=== PATIENT | female | born 1990 | race Caucasian/White ===

== ENCOUNTER 2021-03-30 01:59 | Outpatient (CLI) | payer MEDICAID, SELFPAY ==
[2021-03-30 11:37] LABS: Source Nasal/Nares
[2021-03-30 20:39] LABS: COVID-19 PCR Negative (Negative)
== END 2021-03-30 02:00 | disposition home or self-care (01) ==
LOC: LBO 02:00
PROVIDERS: PCP Internal Medicine
DX: Z20.822 Contact with and (suspected) exposure to COVID-19 (principal); Z01.818 Encounter for other preprocedural examination
CPT/HCPCS: 87635

== ENCOUNTER 2021-08-10 14:13 | Emergency (ER) | payer MEDICAID, SELFPAY ==
[2021-08-10] VITALS (11 sets, daily range): BP systolic 115–128; BP diastolic 61–86; PULSE 75–113; RESP 18; TEMP 37.1; O2SAT 96–100
--- NOTE | 2021-08-10 14:15 | DI.CT_ITS ---
Exam(s) CT CHEST/ABD/PEL W CT THORACIC LUMBAR SPINE REC EXAM: CT CHEST/ABD/PEL W and CT thoracic and lumbar spine recons CLINICAL HISTORY: fall down 13 stairs, flank and lumbar spine pain TECHNIQUE: Imaging Protocol: Axial computed tomography images with coronal and sagittal reformatted images were created and reviewed CONTRAST MATERIAL: Intravenous: Omnipaque 350 Contrast volume:100 mL Oral: No COMPARISON: No priors for comparison. FINDINGS: CHEST: Tracheobronchial tree: Patent where visualized. Pulmonary parenchyma: No consolidation or dominant measurable mass. No architectural distortion. Mild dependent atelectasis. Visualized thyroid gland: Unremarkable. Mediastinum and Annette: No dominant adenopathy or fluid collection. Pleura: No effusion or pneumothorax. Heart: The heart is not dilated. No coronary artery calcifications are seen. No pericardial effusion. Aorta: Thoracic aorta non-dilated. Lymph nodes: Within normal limits. Soft tissues: Unremarkable. Bones:No rib fracture. Thoracic spine recons: There is a mild depression of the superior endplate of T2. This is of indeter minate age. Please correlate with patient's site of pain. MRI may be considered for further evaluat ion. ABDOMEN: Liver: Normal density. No measurable mass. Portal, Superior Mesenteric, and Splenic Veins: Unremarkable. Gallbladder and Biliary Tract: No radiodense calculus or dilation. Pancreas: Normal density, no abnormal calcifications or inflammatory process. Spleen: Normal. There is a tiny round lucency in the peripheral aspect of the spleen. This may repre sent a small cyst. No perisplenic hematoma is seen. Adrenals: No masses seen. Kidneys: Normal size, contour and axis. No radiodense stones or obstructive uropathy. No masses seen. 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 Abdominal Aorta: Abdominal portion non-dilated. Bowel: No obstruction or bowel wall thickening. No evidence of appendicitis. Peritoneal Cavity: No ascites, collection or mesenteric inflammatory response. No free air. Lymph Nodes: Within normal limits. Bones: Unremarkable. Soft Tissues: Unremarkable. Lumbar spine recons: No acute fracture or subluxation in the lumbar spine. PELVIS: Bladder: Symmetric distention, no gross wall thickening. Reproductive Organs: Unremarkable as visualized. Lymph Nodes: Within normal limits. Bones: Within normal limits. IMPRESSION: 1. No acute abdominal or pelvic organ injury. No acute fracture or subluxation in the lumbar spine. 2. No acute pulmonary process. 3. Mild depression of the superior endplate of T2. This is of indeterminate age. Please correlate w ith the patient's site of pain. MRI may be considered for further evaluation. RADIATION DOSE DELIVERED: Total DLP DATA REPOSITORY: All CT scans at this facility are submitted to the National Radiology Data Registry (NRDR) Dose Index Registry (DIR) with the [employer] ([employer]). RADIATION OPTIMIZATION: All CT scans at this facility use at least one of these dose optimization te chniques: automated exposure control; mA and/or kV adjustment per patient size (includes targeted exa ms where dose is matched to clinical indication); or iterative reconstruction.
--- NOTE | 2021-08-10 14:15 | DI.CT_ITS ---
Exam(s) CT HEAD CERVICAL SPINE WO EXAM: CT HEAD CERVICAL SPINE WO CLINICAL HISTORY: fall down 13 steps, pain. TECHNIQUE: Imaging Protocol: Axial computed tomography images with coronal and sagittal reformatted images were created and reviewed COMPARISON: No exams were available for comparison FINDINGS: CT Head: Ventricles and Extra axial spaces: Normal in size and morphology for the patient's age. Hemorrhage: None. Cerebral parenchyma: Normal. Midline shift: None. Brainstem/Cerebellum: Normal. Calvarium: Normal. Visualized Paranasal sinuses/Mastoids: Mild mucosal thickening in the maxillary sinuses. The remaini ng visualized paranasal sinuses and mastoid air cells are clear. Soft Tissues: Unremarkable. CT Cervical Spine: Bones: No acute fracture or subluxation. There is mild depression of the superior aspect of the T2 ve rtebral body. This is of indeterminate acuity. Please correlate with the patient's site of pain. Soft Tissues: Unremarkable. Lung Apices: Clear. IMPRESSION: 1. No acute intracranial process. 2. No acute fracture or subluxation in the cervical spine. 3. Mild depression of the superior aspect of the T2 vertebral body. This is of indeterminate acuity. Please correlate with the patient's site of pain. MRI may be considered for further evaluation. RADIATION DOSE DELIVERED: 1,562.63mGy.cm Total DLP DATA REPOSITORY: All CT scans at this facility are submitted to the National Radiology Data Registry (NRDR) Dose Index Registry (DIR) with the [employer] (ACR). RADIATION OPTIMIZATION: All CT scans at this facility use at least one of these dose optimization te chniques: automated exposure control; mA and/or kV adjustment per patient size (includes targeted exa ms where dose is matched to clinical indication); or iterative reconstruction.
[2021-08-10 14:41] LABS: Abs Immature Grans 0.03 10^3/uL (0.0-0.06); Absolute Basophil Count 0.05 10^3/uL (0.0-0.2); Absolute Lymphocyte Count 1.56 10^3/uL (1.2-3.4); Absolute Monocyte Count 0.35 10^3/uL (0.1-0.8); Eosinophils % 3.9; HCT 43.1 % (36.0-46.0); HGB 14.3 g/dL (11.2-15.7); Immature Grans % 0.6; Lymphocytes % 30.6; MCH 31.1 pg (27.0-33.0); MCHC 33.2 % (32.0-36.0); MCV 93.7 fL (80-95); MPV 8.8 fL (8.0-11.0); Monocytes % 6.9; Nucleated RBC 0 %; Platelet Count 304 10^3/uL (130-400); RDW 12.4 % (11.7-14.6); WBC 5.09 10^3/uL (4.4-10.8)
[2021-08-10 15:04] LABS: ALT 23 U/L (14-59); AST 20 U/L (15-37); Albumin 3.9 g/dL (3.4-5.0); Alkaline Phosphatase 64 U/L (46-116); BUN 6 mg/dL (7-18); Bilirubin, Total 0.4 mg/dL (0.2-1.0); CREATININE 0.8 mg/dL (0.55-1.02); Calcium 8.9 mg/dL (8.5-10.1); Chloride 105 mmol/L (98-107); Glucose 80 mg/dL (74-106); Potassium 4.1 mmol/L (3.5-5.1); Sodium 141 mmol/L (136-145); Total Protein 7.3 g/dL (6.4-8.2)
[2021-08-10 15:07] LABS: HCG Qual (Serum) Negative
--- NOTE | 2021-08-10 15:51 | W.ED.GENAD ---
Discharge Plan Disposition Patient Disposition: HOME Condition: Stable Discharge Details Clinical Impression: Fall, Cervical pain, Abrasion Primary Care Provider: Kelechi Iqbal ED Provider: Amisha Lucas Home Meds and New Rx's Prescriptions: New cyclobenzaprine 10 mg tablet 10 mg PO TID PRN (Reason: muscle spasm) Qty: 14 RF: 0 Continued hydrocodone-acetaminophen 5-325 mg tablet 1 tab PO Q12H RF: 0 terbinafine HCl 250 mg tablet 250 mg PO DAILY RF: 0 danazol 100 mg capsule 100 mg PO BID RF: 0 Discharge Instructions Instructions: Back Pain (ED), Neck Pain (ED) Additional Instructions: Your imaging is reassuring here today. However, as you continue to have neck pain, I would like to leave your collar in place into your reevaluated for potential ligamentous injury. Please call orthopedic Friday to schedule follow-up appointment, number listed below. In regard to your back pain, I am concerned that this may increase and you may develop more muscle spasms. Please stay well-hydrated. You may use Tylenol and/or ibuprofen as needed for discomfort. You may continue with your pain medication as previously prescribed. Be careful that your pain medication does have Tylenol in it and you should not exceed 4000 mg of Tylenol daily. We will augment this with cyclobenzaprine as needed to help with muscle spasms. This is been sent to your pharmacy. Please not take this at the same time you take your hydrocodone. Please encourage frequent ambulation, gentle stretching. You may find heat and massage of benefit. Lidocaine patches is may also be of benefit. Please follow-up with your primary care next week for reevaluation and discuss any continued pain management as needed. If you develop increased pain, fever/chills, weakness, sensory changes or other new/worsening symptoms please seek care urgently once again. Referrals: Kelechi Iqbal MD [Primary Care Provider] - Discharge Data Discharge Date/Time-TO BE ENTERED AT DEPARTURE: 08/10/21 18:40 Medical Decision Making <BETTY Shell - Last Filed: 08/11/21 18:35> Patient with is resting in the room, she declines any analgesia Her tetanus is reportedly up-to-date negative, CBC within normal limits Patient is pending CT head, cervical spine, chest, abdomen, pelvis I ordered the diagnostic tests given last trauma and patient's pain complaints She declines any analgesia at this time She will be signed out pending ct interpretations to Amisha Lucas PA-C Medical Records Medical records reviewed: Yes I reviewed the patient's medical records. Lab Data Lab results reviewed: Yes I reviewed the patient's lab results. <BETTY Angelo - Last Filed: 08/10/21 22:32> Care transition myself from Lore Schmitt PA-C. Please see her initial note regarding history, presentation and exam. In brief, patient is a pleasant 31-year-old who comes in after falling down flight of stairs. Primary area of pain was on their back. At the time I assumed care, imaging pending. Tetanus has been ordered. Baseline labs were reviewed without abnormality noted. Reevaluated the patient. Report feeling improved after IV fentanyl. FINDINGS: Brain: No acute post-traumatic brain injury. Symmetric caliber of the cortical sulci. Normal hutton-white matter differentiation. Cerebral ventricles: Normal configuration of the ventricles. Paranasal sinuses: Low-grade maxillary and ethmoid sinus mucoperiosteal disease. Mastoid air cells: No mastoid effusion. Bones/joints: No acute calvarial injury. Soft tissues: No significant scalp hematoma. IMPRESSION: No acute post-traumatic brain injury. FINDINGS: Bones/joints: No acute bony injury or malalignment in the cervical spine. Mild compression deformity of the T2 vertebral body, believed to be chronic. Discs/Spinal canal/Neural foramina: No acute findings. Lungs: Unremarkable apices as visualized. Soft tissues: Unremarkable. IMPRESSION: 1. No acute bony injury or malalignment in the cervical spine. 2. Mild compression deformity of the T2 vertebral body, believed to be chronic. Discussed these findings with the patient and their mother. Patient does not have midline tenderness on exam, does have pain off to the left. However, they report pain along the midline with rotation of the neck. Reapplied the collar, will transition to [place]. FINDINGS: Vertebrae: Schmorl's nodes , with vertebral endplate depression and irregularity. Mild T2 compression deformity, believed to be chronic. No acute bony injury or malalignment in the thoracic spine. Discs/Spinal canal/Neural foramina: Mild degenerative change and marginal osteophytes. Soft tissues: Unremarkable appearance of the paraspinous soft tissues. IMPRESSION: No acute bony injury or malalignment in the thoracic spine. FINDINGS: Vertebrae: Schmorl's nodes with vertebral endplate depression and irregularity. No acute bony injury or malalignment in the lumbar spine. Discs/Spinal canal/Neural foramina: No acute findings. Soft tissues: Unremarkable appearance of the paraspinous soft tissues. IMPRESSION: No acute bony injury or malalignment in the lumbar spine FINDINGS: Lungs: Unremarkable. No consolidation. No masses. Pleural spaces: Unremarkable. No pneumothorax. No pleural effusion. Heart: Unremarkable. No cardiomegaly. No pericardial effusion. Aorta: Unremarkable. No aortic aneurysm. Lymph nodes: Unremarkable. No enlarged lymph nodes. Bones/joints: Probable mild anterior superior endplate compression fracture at T2, of uncertain age. Soft tissues: Unremarkable. IMPRESSION: Probable mild anterior superior endplate compression fracture at T2, of uncertain age. No other acute abnormality. FINDINGS: Liver: Normal. No mass. Gallbladder and bile ducts: Normal. No calcified stones. No ductal dilation. Pancreas: Normal. No ductal dilation. Spleen: Normal. No splenomegaly. Adrenal glands: Normal. No mass. Kidneys and ureters: Normal. No hydronephrosis. Stomach and bowel: Unremarkable. No obstruction. No mucosal thickening. Appendix: No evidence of appendicitis. Intraperitoneal space: Unremarkable. No free air. No significant fluid collection. Vasculature: Unremarkable. No abdominal aortic aneurysm. Lymph nodes: Unremarkable. No enlarged lymph nodes. Urinary bladder: Unremarkable as visualized. Reproductive: Unremarkable as visualized. Bones/joints: Unremarkable. No acute fracture. Soft tissues: Unremarkable. IMPRESSION: No acute findings. Discussed the findings with the patient and her mother. We did discuss that radiologist notes chronic appearing T2 fracture. They do not recall previous injury but reports that they have had chronic back pain and are questioning if this may be the source. Patient discussed options for pain management. Patient is chronically on narcotics associated with severe endometriosis as well as fibromyalgia. With the description of pain as well as location, I am concerned that pain will primarily be associated with muscle spasms. Will prescribe cyclobenzaprine. They report they have been on baclofen historically and that this is typically worked very well but that the baclofen began causing nausea I would like to try a different medication for muscle spasms. I advised not to take this at the same time you are taking the narcotics. Encourage hydration. Encourage gentle stretching. Encouraged heat or ice. Encourage massage. Advised on topical options. Advised may continue with Tylenol and ibuprofen as needed for discomfort. Patient will need to be reevaluated by orthopedics for cervical collar clearance, I asked that they call Friday morning to schedule follow-up appointment. Return precautions were discussed. All of their questions and concerns were addressed and they are in agreement with plan. They will contact primary care regarding continued pain medication management. Primary care is near [place]. HPI <BETTY Shell - Last Filed: 08/11/21 18:35> General Mode of arrival: ambulatory. Date/Time Provider Initiated Documentation: 08/10/21 14:15. Limitations to Documentation: no limitations. Information obtained by: patient. HPI Narrative: This 31-year-old individual presents with a report of fall down approximately 13 stairs. Patient states the rug was not stable down and that she slipped, falling and hitting her head and back on the stairs while she in between the door. She denies no loss of consciousness. She has pain down the entirety of her back. She states her tetanus is up-to-date. She denies any dental diagnosis. She denies any vomiting. She denies any strength or sensation change. She has pain in the middle of her back when she takes a deep breath only. She took a [place] prior to arrival and states her pain is improved. She denies any history of anticoagulation. Related Data Home Medications Medication Instructions Recorded Confirmed cyclobenzaprine 10 mg PO TID PRN #14 tab 08/10/21 danazol 100 mg PO BID 08/10/21 08/10/21 hydrocodone-acetaminophen 1 tab PO Q12H 08/10/21 08/10/21 terbinafine HCl 250 mg PO DAILY 08/10/21 08/10/21 Previous Rx's Medication Instructions Recorded cyclobenzaprine 10 mg PO TID PRN #14 tab 08/10/21 Allergies Allergy/AdvReac Type Severity Reaction Status Date / Time bupropion HCl AdvReac Severe short Unverified 08/10/21 14:20 [From Wellbutrin] memory impairment. ethinyl estradiol AdvReac Severe nausea and Unverified 08/10/21 14:20 [From Ortho-Cyclen (21)] vomiting. norgestimate AdvReac Severe nausea and Unverified 08/10/21 14:20 [From Ortho-Cyclen (21)] vomiting. venlafaxine HCl AdvReac Severe decreased Unverified 08/10/21 14:20 [From Effexor] focus lactose AdvReac Intermediate intolerance Unverified 08/10/21 14:20 melatonin AdvReac Intermediate Agitation Unverified 08/10/21 14:20 General Stated Complaint: Trauma DESMOND: 3 Review of Systems <BETTY Shell Last Filed: 08/11/21 18:35> All systems reviewed & are unremarkable except as noted in HPI and below PFSH <BETTY Shell Last Filed: 08/11/21 18:35> Social History Smoking/Tobacco Use Status: Never Smoking risk assessment performed?: Yes Alcohol Intake: current Alcohol Intake frequency: holidays/special occasions only Alcohol type: beer Drug use: Never Substance use type: does not use Do you feel safe at home: Yes Do you feel safe in your relationship?: Yes Exam <BETTY Shell Last Filed: 08/11/21 18:35> Const General: cooperative and no acute distress HENMT Other: No hemotympanum, no visible sign of trauma Eyes Pupils: PERRL Neck Other: c6-7 tenderness, no visible evidence of trauma Chest Chest: normal inspection of the chest Resp Effort & Inspection: normal respiratory effort Auscultation: clear to auscultation bilaterally Other: No visible evidence of trauma Cardio Rate: regular rate Rhythm: regular rhythm GI Other: No abdominal tenderness, CVA tenderness on right, Back/Spine/Pelvis Other: Paraspinal tenderness lumbar spine Small abrasion noted 1 inch laterally to spine, tenderness, abrasion Neuro General: patient alert and patient oriented x3 Cognition: normal cognition Speech: speech normal Other: Strength and sensation intact distally Course <BETTY Shell Last Filed: 08/11/21 18:35> Vital Signs Vital signs: Vital Signs Temperature 37.1 C 08/10/21 14:15 Pulse 75 08/10/21 14:15 Respiratory Rate 18 08/10/21 14:15 Blood Pressure 115/61 08/10/21 14:15 Pulse Oximetry 100 08/10/21 14:15 Temperature 37.1 C 08/10/21 14:15 Temperature Source Temporal Artery Scan 08/10/21 14:15 Pulse 75 08/10/21 14:15 Respiratory Rate 18 08/10/21 14:15 Respiratory Effort Non-Labored 08/10/21 14:18 Blood Pressure 115/61 08/10/21 14:15 Blood Pressure Position Supine 08/10/21 14:15 Pulse Oximetry 99 08/10/21 14:50 Oxygen Delivery Method Room Air 08/10/21 14:15 Oxygen Flow Rate 0 08/10/21 14:15 Pain Level 6 08/10/21 14:15 Lab/Test Results Lab/Test Results: Laboratory Tests Range/Units 08/10/21 08/10/21 08/10/21 14:30 14:30 14:30 WBC (4.4-10.8) 10^3/uL 5.09 RBC (3.93-5.22) 10^6/uL 4.60 Hgb (11.2-15.7) g/dL 14.3 Hct (36.0-46.0) % 43.1 MCV (80-95) fL 93.7 MCH (27.0-33.0) pg 31.1 MCHC (32.0-36.0) % 33.2 RDW (11.7-14.6) % 12.4 Plt Count (130-400) 10^3/uL 304 MPV (8.0-11.0) fL 8.8 Immature Gran % 0.6 Neutrophils % 57.0 Lymphocytes % 30.6 Monocytes % 6.9 Eosinophils % 3.9 Basophils % 1.0 Nucleated RBC % % 0 Absolute Neutrophils (1.2-6.7) 10^3/uL 2.90 Absolute Lymphocytes (1.2-3.4) 10^3/uL 1.56 Absolute Monocytes (0.1-0.8) 10^3/uL 0.35 Absolute Eosinophils (0.0-0.7) 10^3/uL 0.20 Absolute Basophils (0.0-0.2) 10^3/uL 0.05 Sodium (136-145) mmol/L 141 Potassium (3.5-5.1) mmol/L 4.1 Chloride (98-107) mmol/L 105 Carbon Dioxide (21.0-32.0) mmol/L 29.0 Anion Gap (3-11) mmol/L 7.0 BUN (7-18) mg/dL 6 L Creatinine (0.55-1.02) mg/dL 0.8 Estimated GFR/1.73 m2 (mL/min/1.73m2) >= 60.00 Glucose (74-106) mg/dL 80 Calcium (8.5-10.1) mg/dL 8.9 Total Bilirubin (0.2-1.0) mg/dL 0.4 AST (15-37) U/L 20 ALT (14-59) U/L 23 Alkaline Phosphatase (46-116) U/L 64 Total Protein (6.4-8.2) g/dL 7.3 Albumin (3.4-5.0) g/dL 3.9 Serum HCG, Qual Negative Patient ABO/Rh Antibody Screen Range/Units 08/10/21 14:30 WBC (4.4-10.8) 10^3/uL RBC (3.93-5.22) 10^6/uL Hgb (11.2-15.7) g/dL Hct (36.0-46.0) % MCV (80-95) fL MCH (27.0-33.0) pg MCHC (32.0-36.0) % RDW (11.7-14.6) % Plt Count (130-400) 10^3/uL MPV (8.0-11.0) fL Immature Gran % Neutrophils % Lymphocytes % Monocytes % Eosinophils % Basophils % Nucleated RBC % % Absolute Neutrophils (1.2-6.7) 10^3/uL Absolute Lymphocytes (1.2-3.4) 10^3/uL Absolute Monocytes (0.1-0.8) 10^3/uL Absolute Eosinophils (0.0-0.7) 10^3/uL Absolute Basophils (0.0-0.2) 10^3/uL Sodium (136-145) mmol/L Potassium (3.5-5.1) mmol/L Chloride (98-107) mmol/L Carbon Dioxide (21.0-32.0) mmol/L Anion Gap (3-11) mmol/L BUN (7-18) mg/dL Creatinine (0.55-1.02) mg/dL Estimated GFR/1.73 m2 (mL/min/1.73m2) Glucose (74-106) mg/dL Calcium (8.5-10.1) mg/dL Total Bilirubin (0.2-1.0) mg/dL AST (15-37) U/L ALT (14-59) U/L Alkaline Phosphatase (46-116) U/L Total Protein (6.4-8.2) g/dL Albumin (3.4-5.0) g/dL Serum HCG, Qual Patient ABO/Rh O Positive Antibody Screen NEGATIVE Sign Out <BETTY Shell - Last Filed: 08/11/21 18:35> Sign Out Data: Sign Out Comment: pending ct interpretation Last updated by Lore Schmitt PA at 08/10/21 16:07 PAWSS <BETTY Shell - Last Filed: 08/11/21 18:35> Have you Been Recently Intoxicated or Drunk Within the Last 30 days?: No Have you Ever Experienced Previous Episodes of Alcohol Withdrawal?: No Have you ever Experienced Withdrawal Seizures?: No Have you ever Experienced Delirium Tremens(DT)s?: No Have you ever undergone Alcohol Rehabilitation Treatment (i.e, inpt ot outpatient treatment programs)?: No Have you ever Experienced Blackouts?: No Have you ever Combined Alcohol with other Downers within the last 90 days?: No Have you ever Combined Alcohol with any other Substance of Abuse during the last 90 days?: No Positive Blood Alcohol level on Presentation? [PCS.BAL]: No Evidence of Increased Autonomic Activity (i.e. HR>120, tremor, sweating, agitation, nausea)?: No Result: 0
[2021-08-10] MEDS: Normal Saline - Diluent 50 ML VIAL IV (15:52)
[2021-08-10] MEDS: Omnipaque 350 MG/ML 100 ML BTL IJ (15:54)
[2021-08-10] MEDS: Orphenadrine 60 MG/2 ML VIAL IVP (16:42)
[2021-08-10] MEDS: fentaNYL 100 MCG/2 ML VIAL 50 MCG IVP (16:42)
--- NOTE | 2021-08-10 16:51 | DI.VRAD_ITS ---
PROCEDURE INFORMATION: Exam: CT Head Without Contrast Exam date and time: 08/10/2021 3:43 PM Age: 31 years old Clinical indication: Injury or trauma; Blunt trauma (contusions or hematomas); Injury details: fall TECHNIQUE: Imaging protocol: Computed tomography of the head without contrast. COMPARISON: No relevant prior studies available. FINDINGS: Brain: No acute post-traumatic brain injury. Symmetric caliber of the cortical sulci. Normal hutton-white matter differentiation. Cerebral ventricles: Normal configuration of the ventricles. Paranasal sinuses: Low-grade maxillary and ethmoid sinus mucoperiosteal disease. Mastoid air cells: No mastoid effusion. Bones/joints: No acute calvarial injury. Soft tissues: No significant scalp hematoma. IMPRESSION: No acute post-traumatic brain injury. PROCEDURE INFORMATION: Exam: CT Cervical Spine Without Contrast Exam date and time: 08/10/2021 3:43 PM Age: 31 years old Clinical indication: Injury or trauma; Blunt trauma (contusions or hematomas); Injury details: fall TECHNIQUE: Imaging protocol: Computed tomography images of the cervical spine without contrast. Radiation optimization: All CT scans at this facility use at least one of these dose optimization techniques: automated exposure control; mA and/or kV adjustment per patient size (includes targeted exams where dose is matched to clinical indication); or iterative reconstruction. COMPARISON: No relevant prior studies available. FINDINGS: Bones/joints: No acute bony injury or malalignment in the cervical spine. Mild compression deformity of the T2 vertebral body, believed to be chronic. Discs/Spinal canal/Neural foramina: No acute findings. Lungs: Unremarkable apices as visualized. Soft tissues: Unremarkable. IMPRESSION: 1. No acute bony injury or malalignment in the cervical spine. 2. Mild compression deformity of the T2 vertebral body, believed to be chronic. Dictated and Authenticated by: Sandoval Oquendo MD. Ordering:GAVI Torrez MD
--- NOTE | 2021-08-10 16:56 | DI.VRAD_ITS ---
PROCEDURE INFORMATION: Exam: CT Thoracic Spine Without Contrast Exam date and time: 08/10/2021 3:51 PM Age: 31 years old Clinical indication: Other: Fall down flight of stairs, thoracic pain TECHNIQUE: Imaging protocol: Computed tomography images of the thoracic spine without contrast. Radiation optimization: All CT scans at this facility use at least one of these dose optimization techniques: automated exposure control; mA and/or kV adjustment per patient size (includes targeted exams where dose is matched to clinical indication); or iterative reconstruction. COMPARISON: None FINDINGS: Vertebrae: Schmorl's nodes , with vertebral endplate depression and irregularity. Mild T2 compression deformity, believed to be chronic. No acute bony injury or malalignment in the thoracic spine. Discs/Spinal canal/Neural foramina: Mild degenerative change and marginal osteophytes. Soft tissues: Unremarkable appearance of the paraspinous soft tissues. IMPRESSION: No acute bony injury or malalignment in the thoracic spine. PROCEDURE INFORMATION: Exam: CT Lumbar Spine Without Contrast Exam date and time: 08/10/2021 3:51 PM Age: 31 years old Clinical indication: Other: Fall down flight of stairs, thoracic pain TECHNIQUE: Imaging protocol: Computed tomography images of the lumbar spine without contrast. Radiation optimization: All CT scans at this facility use at least one of these dose optimization techniques: automated exposure control; mA and/or kV adjustment per patient size (includes targeted exams where dose is matched to clinical indication); or iterative reconstruction. COMPARISON: None FINDINGS: Vertebrae: Schmorl's nodes with vertebral endplate depression and irregularity. No acute bony injury or malalignment in the lumbar spine. Discs/Spinal canal/Neural foramina: No acute findings. Soft tissues: Unremarkable appearance of the paraspinous soft tissues. IMPRESSION: No acute bony injury or malalignment in the lumbar spine. Dictated and Authenticated by: Sandoval Oquendo MD. Ordering:GAIV Torrez MD
--- NOTE | 2021-08-10 17:14 | DI.VRAD_ITS ---
PROCEDURE INFORMATION: Exam: CT Chest With Contrast; Diagnostic Exam date and time: 08/10/2021 3:58 PM Age: 31 years old Clinical indication: Injury or trauma; Generalized; Blunt trauma (contusions or hematomas); Injury details: Fall 13 stairs. Flank/lumbar spine pain TECHNIQUE: Imaging protocol: Diagnostic computed tomography of the chest with contrast. Radiation optimization: All CT scans at this facility use at least one of these dose optimization techniques: automated exposure control; mA and/or kV adjustment per patient size (includes targeted exams where dose is matched to clinical indication); or iterative reconstruction. Contrast material: OMNI 350; Contrast volume: 100 ml; Contrast route: INTRAVENOUS (IV); COMPARISON: CT HEAD CERVICAL SPINE WO 08/10/2021 3:48 PM FINDINGS: Lungs: Unremarkable. No consolidation. No masses. Pleural spaces: Unremarkable. No pneumothorax. No pleural effusion. Heart: Unremarkable. No cardiomegaly. No pericardial effusion. Aorta: Unremarkable. No aortic aneurysm. Lymph nodes: Unremarkable. No enlarged lymph nodes. Bones/joints: Probable mild anterior superior endplate compression fracture at T2, of uncertain age. Soft tissues: Unremarkable. IMPRESSION: Probable mild anterior superior endplate compression fracture at T2, of uncertain age. No other acute abnormality. PROCEDURE INFORMATION: Exam: CT Abdomen And Pelvis With Contrast Exam date and time: 08/10/2021 3:58 PM Age: 31 years old Clinical indication: Injury or trauma; Generalized; Blunt trauma (contusions or hematomas); Injury details: Fall 13 stairs. Flank/lumbar spine pain TECHNIQUE: Imaging protocol: Computed tomography of the abdomen and pelvis with contrast. Contrast material: OMNI 350; Contrast volume: 100 ml; Contrast route: INTRAVENOUS (IV); COMPARISON: CT HEAD CERVICAL SPINE WO 08/10/2021 3:48 PM FINDINGS: Liver: Normal. No mass. Gallbladder and bile ducts: Normal. No calcified stones. No ductal dilation. Pancreas: Normal. No ductal dilation. Spleen: Normal. No splenomegaly. Adrenal glands: Normal. No mass. Kidneys and ureters: Normal. No hydronephrosis. Stomach and bowel: Unremarkable. No obstruction. No mucosal thickening. Appendix: No evidence of appendicitis. Intraperitoneal space: Unremarkable. No free air. No significant fluid collection. Vasculature: Unremarkable. No abdominal aortic aneurysm. Lymph nodes: Unremarkable. No enlarged lymph nodes. Urinary bladder: Unremarkable as visualized. Reproductive: Unremarkable as visualized. Bones/joints: Unremarkable. No acute fracture. Soft tissues: Unremarkable. IMPRESSION: No acute findings. Dictated and Authenticated by: Nubia Marti MD. Ordering:GAVI Torrez MD
[2021-08-10] MEDS: Lidocaine 5% Patch 1 PATCH TP (18:25)
== END 2021-08-10 18:40 | disposition home or self-care (01) ==
PROVIDERS: Physician Assistant; Emergency Provider Physician Assistant; PCP Internal Medicine
DX: M54.2 Cervicalgia (principal); M54.9 Dorsalgia, unspecified; S30.810A Abrasion of lower back and pelvis, initial encounter; W10.8XXA Fall (on) (from) other stairs and steps, initial encounter
CPT/HCPCS: 36415; 74177; 80053; 86850; 86900; 86901; 90471; 96374; 96375; 99285; J2360; 70450; 71260; 72125; 84703; 85025; 99284; J3010; J3490

== ENCOUNTER 2023-03-04 00:55 | Emergency (ER) | payer MEDICAID, SELFPAY ==
[2023-03-04] VITALS (13 sets, daily range): BP systolic 97–121; BP diastolic 30–48; PULSE 47–70; RESP 12–20; TEMP 37.2; O2SAT 99–100
--- NOTE | 2023-03-04 01:00 | RT.EKG_ITS ---
APPROVED REPORT Exam: Resting ECG Reason for Exam: syncope Patient Location: E HR:50 bpm ECG Measurements Heart Rate 50 AXIS OK 170 P 51 QRSd 74 QRS 83 QT 415 T 64 QTc 379 Conclusion Sinus bradycardia...rate< 60 Nonspecific T abnrm, anterolateral leads...T <-0.10mV, I aVL V2-V6 PHysician: no stemi, inverted t waves in V1 and V2
--- NOTE | 2023-03-04 01:00 | DI.CT_ITS ---
Exam(s) CT CHEST PE CTA EXAM: CT CHEST PE CTA CLINICAL HISTORY: bilat masectomy today, 5x syncope, eval for PE. TECHNIQUE: Imaging Protocol: Axial CT angiography was performed with multi-slice acquisition and mu lti-planar and/or 3D reconstructions. CONTRAST MATERIAL: Intravenous: Omnipaque 350 contrast volume:100 mL COMPARISON: CT CT CHEST/ABD/PEL W from 08/10/[address] THORACIC LUMBAR SPINE REC from 08/10/2021 FINDINGS: Tracheobronchial tree: Patent where visualized. Pulmonary parenchyma: No consolidation or dominant measurable mass. No architectural distortion. Ther e is dependent atelectasis in the lung bases. Pulmonary Arteries: No evidence of filling defect to suggest pulmonary emboli. Mediastinum and Annette: No dominant adenopathy or fluid collection. The esophagus is unremarkable. Visualized thyroid gland: Unremarkable. Pleura: No effusion or pneumothorax. Heart: The heart is not dilated. No coronary artery calcifications are seen. No pericardial effusion. Aorta: Thoracic aorta non-dilated. No evidence of dissection. Upper abdomen: Unremarkable. Soft tissues: The patient is status post bilateral mastectomy today with postsurgical changes seen in the soft tissues of the anterior chest. Tubing is seen in the soft tissues of the anterior chest wa ll bilaterally. Subcutaneous air is seen in the chest wall anteriorly. Bones: Within normal limits for the patient's age. IMPRESSION: 1. No evidence of pulmonary embolism, thoracic aortic dissection or aneurysm. 2. Status post bilateral mastectomy with expected postsurgical changes in the anterior chest wall wit h bilateral soft tissue drains. RADIATION DOSE DELIVERED: 382.9mGy.cm Total DLP DATA REPOSITORY: All CT scans at this facility are submitted to the National Radiology Data Registry (NRDR) Dose Index Registry (DIR) with the [employer] (ACR). RADIATION OPTIMIZATION: All CT scans at this facility use at least one of these dose optimization te chniques: automated exposure control; mA and/or kV adjustment per patient size (includes targeted exa ms where dose is matched to clinical indication); or iterative reconstruction.
--- NOTE | 2023-03-04 01:14 | W.ED.GENAD ---
Discharge Plan Disposition Patient Disposition: Home Discharge Details Chief Complaint: GenMedical Clinical Impression: Syncope, Dehydration Primary Care Provider: Kelechi Iqbal ED Provider: Keon Balbuena Home Meds and New Rx's Prescriptions: No Action danazol 100 mg Capsule 100 mg PO BID hydrocodone-acetaminophen 5-325 mg tablet 1 tab PO Q12H Patient Comments: TAKE ONE TABLET BY MOUTH EVERY 12 HOURS NEEDED FOR PAIN danazol 100 mg capsule 100 mg PO BID Patient Comments: TAKE ONE CAPSULE BY MOUTH TWICE A DAY Discharge Instructions Instructions: Dehydration (ED), Syncope (ED) Additional Instructions: At this time your work-up suggest that there is a component of dehydration, as well as a slight drop in your hemoglobin which combined with a vasovagal effect from the pain from your surgical site is likely a component for your lightheadedness and syncope. CAT scan shows no evidence of blood clots. Your heart markers show no signs of heart attack or other significant dysrhythmia. Please continue to drink plenty of fluids, stay well-hydrated, make slow transitions from lying, seated, and standing positions. Follow-up closely with your manager surgical at [facility]. If you notice any worsening of your symptoms, or any new symptoms such as vomiting, diarrhea, fever, chills, shortness of breath, chest pain, numbness, weakness, or fainting , please return immediately to the emergency department for reevaluation. Please follow up with your primary care provider as soon as possible for reassessment and reevaluation. As always, it was a pleasure participating in your medical care today. Referrals: Kelechi Iqbal MD [Primary Care Provider] - Medical Decision Making This is a 32-year-old patient with a past medical history of endometriosis, potential polycystic ovarian syndrome, recent double mastectomy at [facility] performed less than 12 hours ago, who presents today for evaluation of syncope. Patient states that after the procedure they had some pain and felt generally lightheaded. By the time they returned home they had 3 episodes of syncope whenever they were standing, or having the drain drained. Patient contacted EMS at that time, was evaluated, felt better after little fluid, and decided to hold off on going to the ER. However later this evening the patient continued to have lightheadedness, and near syncopal episodes at home, and was then reassessed by EMS and brought into the ER for evaluation. Blood pressures were noted to be in the 80s systolic by EMS on their arrival. Oxygen saturation normal, blood sugar normal. Patient denies shortness of breath or difficulty breathing. Patient does have a family history of blood clots in her grandparent. Patient denies any previous history of cardiac disease. Patient has mild complaint of pain at the postoperative site, but no other complaint. No other modifying factors. Drains are in place. Physical exam demonstrates appropriate postoperative surgical changes, incision sites are otherwise clean dry and intact. Small amount of drainage present at each drain site, 10 mL from each drain is present. Mucous membranes are dry, lips are slightly pale. Differential at this time includes postoperative appropriate blood loss, with secondary dehydration leading to vasovagal syncope/near syncope. However differential also does include PE, cardiac dysrhythmia, or other abnormality. EKG shows no evidence of STEMI. Intervals are stable. Inverted T waves in V1 and V2, but EKG otherwise stable. We will rehydrate, evaluate for these concerning etiologies, monitor closely and reassess. 3:01 AM Laboratory work-up shows stable electrolytes. Hemoglobin is taken a slight drop at 10.9. After 2 L of normal saline the patient has urinated, and her blood pressure is notably improved from the low 80s measured by EMS, now the mid 110s systolic. Patient feels better. CT/CTA of the chest demonstrates no evidence of pulmonary emboli. EKG is stable with no evidence of significant dysrhythmia. As the patient's symptoms were associated with standing, transitioning and moving, as well as when she was having her drain changed and emptied, I suspect that there was a notable vasovagal component associated with her syncope. At this time with no evidence of dysrhythmia, electrolyte abnormality, pulmonary embolism, dissection, or other significant abnormality I do feel that the patient is stable and appropriate for discharge based on current clinical assessment. FINDINGS: Tubes, catheters and devices: Status post bilateral mastectomy with expected postsurgical change of the anterior thoracic wall with bilateral soft tissue drains. Pulmonary arteries: Normal. No pulmonary emboli. Aorta: Unremarkable. No aortic aneurysm. No aortic dissection. Lungs: Unremarkable. No consolidation. No masses. Pleural spaces: Unremarkable. No pneumothorax. No pleural effusion. Heart: Unremarkable. No cardiomegaly. No pericardial effusion. Lymph nodes: Unremarkable. No enlarged lymph nodes. Bones/joints: Unremarkable. No acute fracture. Soft tissues: Unremarkable. IMPRESSION: Status post bilateral mastectomy with expected postsurgical change of the anterior thoracic wall with bilateral soft tissue drains. Thank you for allowing us to participate in the care of your patient. Dictated and Authenticated by: Sukhjinder Finley MD 03/04/2023 2:40 AM Eastern Time ([place] & [place]) HPI General Date/Time Provider Initiated Documentation: 03/04/23 01:10. HPI Narrative: This is a 32-year-old patient with a past medical history of endometriosis, potential polycystic ovarian syndrome, recent double mastectomy at [facility] performed less than 12 hours ago, who presents today for evaluation of syncope. Patient states that after the procedure they had some pain and felt generally lightheaded. By the time they returned home they had 3 episodes of syncope whenever they were standing, or having the drain drained. Patient contacted EMS at that time, was evaluated, felt better after little fluid, and decided to hold off on going to the ER. However later this evening the patient continued to have lightheadedness, and near syncopal episodes at home, and was then reassessed by EMS and brought into the ER for evaluation. Blood pressures were noted to be in the 80s systolic by EMS on their arrival. Oxygen saturation normal, blood sugar normal. Patient denies shortness of breath or difficulty breathing. Patient does have a family history of blood clots in her grandparent. Patient denies any previous history of cardiac disease. Patient has mild complaint of pain at the postoperative site, but no other complaint. No other modifying factors. Drains are in place. Related Data Home Medications Medication Instructions Recorded Confirmed danazol 100 mg capsule 100 mg PO BID 08/10/21 danazol 100 mg capsule 100 mg PO BID 08/10/21 08/27/21 hydrocodone 5 mg-acetaminophen 325 1 tab PO Q12H 08/10/21 08/27/21 mg tablet Allergies Allergy/AdvReac Type Severity Reaction Status Date / Time bupropion HCl AdvReac Severe short Unverified 04/05/22 11:00 [From Wellbutrin] memory impairment. ethinyl estradiol AdvReac Severe nausea and Unverified 04/05/22 11:00 [From Ortho-Cyclen (21)] vomiting. norgestimate AdvReac Severe nausea and Unverified 04/05/22 11:00 [From Ortho-Cyclen (21)] vomiting. venlafaxine HCl AdvReac Severe decreased Unverified 04/05/22 11:00 [From Effexor] focus lactose AdvReac Intermediate intolerance Unverified 04/05/22 11:00 melatonin AdvReac Intermediate Agitation Unverified 04/05/22 11:00 General Stated Complaint: GenMedical DESMOND: 3 Review of Systems All systems reviewed & are unremarkable except as noted in HPI and below PFSH All Active Problems (Updated 03/04/23 @ 03:01 by Keon Balbuena DO) Syncope (Chronic) Dehydration (Acute) Fall (Acute) Cervical pain (Acute) Abrasion (Acute) Social History Smoking/Tobacco Use Status: Never Smoking risk assessment performed?: Yes Alcohol Intake: current Alcohol Intake frequency: holidays/special occasions only Alcohol type: beer Drug use: Never Substance use type: does not use and marijuana Do you feel safe at home: Yes Do you feel safe in your relationship?: Yes Additional Social history: Lives above parents in own apartment. Exam Narrative Exam Narrative: 1.Const: Well-nourished, Well-developed, appearing stated age 2.Eyes: PERRL, no conjunctival injection, and symmetrical lids. 3.ENT: Atraumatic external nose and ears. Dry MM. Neck: Symmetric, trachea midline, No thyromegaly. 4.CVS: +S1/S2, No murmurs or gallops. Peripheral pulses 2+ and equal in all extremities. Brisk capillary refill in all extremities. 5.RESP: Unlabored respiratory effort. Clear to auscultation bilaterally. No wheezes rales or rhonchi 6.GI: Soft, Nontender/Nondistended, No hepatosplenomegaly. No guarding or rebound. 7.MSK chest wall demonstrates postoperative bilateral mastectomy. Incision sites are clean dry and intact. Drains demonstrate about 10 mL present in each drain basin. No purulence. Fluid is serosanguineous. 8.Skin: Warm, Dry. No rashes or lesions. 9.Neuro: storeroom attendant II-XII grossly intact. Sensation grossly intact, no focal neurologic deficits. 10.Psych: (AAO) x3. Appropriate mood and affect Course Vital Signs Vital signs: Vital Signs Temperature 37.2 C 03/04/23 00:55 Pulse 64 03/04/23 00:55 Respiratory Rate 18 03/04/23 00:55 Blood Pressure 116/48 L 03/04/23 00:55 Pulse Oximetry 100 03/04/23 00:55 Temperature 37.2 C 03/04/23 00:55 Temperature Source Temporal Artery Scan 03/04/23 00:55 Pulse 64 03/04/23 00:55 Respiratory Rate 18 03/04/23 00:55 Respiratory Effort Normal, Non-Labored 03/04/23 01:08 Blood Pressure 116/48 L 03/04/23 00:55 Blood Pressure Position Sitting 03/04/23 00:55 Pulse Oximetry 100 03/04/23 00:55 Oxygen Delivery Method Room Air 03/04/23 00:55 Oxygen Flow Rate 0 03/04/23 00:55 Pain Level 4 03/04/23 00:55
[2023-03-04] MEDS: Normal Saline Flush 10 ML SYR IVP (01:22)
--- NOTE | 2023-03-04 01:22 | NUR.NOTE ---
Pt has bilateral RADHA drains present. 10mL emptied from L side and 10mL emptied from R side.
[2023-03-04 01:23] LABS: Abs Immature Grans 0.03 10^3/uL (0.0-0.06); Absolute Basophil Count 0.01 10^3/uL (0.0-0.2); Absolute Lymphocyte Count 0.49 10^3/uL (1.2-3.4); Absolute Monocyte Count 0.26 10^3/uL (0.1-0.8); Absolute Neutrophil Count 8.87 10^3/uL (1.2-6.7); Basophils % 0.1; HCT 32.7 % (36.0-46.0); HGB 10.9 g/dL (11.2-15.7); Immature Grans % 0.3; Lymphocytes % 5.1; MCH 31.7 pg (27.0-33.0); MCHC 33.3 % (32.0-36.0); MCV 95 fL (80-95); MPV 9.3 fL (8.0-11.0); Monocytes % 2.7; Neutrophils % 91.8; Platelet Count 206 10^3/uL (130-400); RBC 3.44 10^6/uL (3.93-5.22); RDW 11.5 % (11.7-14.6); RDW-SD 39.7 fL; WBC 9.66 10^3/uL (4.4-10.8)
[2023-03-04] MEDS: Normal Saline - Diluent 50 ML VIAL IJ (01:23)
[2023-03-04] MEDS: Omnipaque 350 MG/ML 100 ML BTL IJ (01:23)
[2023-03-04 01:48] LABS: ALT 13 U/L (14-59); AST 9 U/L (15-37); Albumin 3.3 g/dL (3.4-5.0); Alkaline Phosphatase 42 U/L (46-116); Anion Gap 5.9 mmol/L (3-11); BUN 9 mg/dL (7-18); Bilirubin, Total 0.3 mg/dL (0.2-1.0); CO2 24.1 mmol/L (21.0-32.0); CREATININE 0.9 mg/dL (0.55-1.02); Calcium 8.3 mg/dL (8.5-10.1); Chloride 105 mmol/L (98-107); Estimated GFR 87.11 (mL/min/1.73m2); Glucose 178 mg/dL (74-106); Potassium 4.6 mmol/L (3.5-5.1); Sodium 135 mmol/L (136-145); TSH (W/Ref FT4) 0.41 uIU/mL (0.36-3.74); Total Protein 6.3 g/dL (6.4-8.2)
--- NOTE | 2023-03-04 02:41 | DI.VRAD_ITS ---
PROCEDURE INFORMATION: Exam: CTA Chest With Contrast Exam date and time: 03/04/2023 1:25 AM Age: 32 years old Clinical indication: Prior surgery; Surgery date: Post-operative (0-2 days); Surgery type: Bilat mastectomy today; Patient HX: 5x syncope, eval for pe TECHNIQUE: Imaging protocol: Computed tomographic angiography of the chest with contrast. 3D rendering (Not supervised by radiologist): MIP and/or 3D reconstructed images were created by the technologist. Radiation optimization: All CT scans at this facility use at least one of these dose optimization techniques: automated exposure control; mA and/or kV adjustment per patient size (includes targeted exams where dose is matched to clinical indication); or iterative reconstruction. Contrast material: OMNIPAQUE 350; Contrast volume: 100 ml; Contrast route: INTRAVENOUS (IV); COMPARISON: CT CHEST/ABD/PEL W 08/10/2021 3:56 PM FINDINGS: Tubes, catheters and devices: Status post bilateral mastectomy with expected postsurgical change of the anterior thoracic wall with bilateral soft tissue drains. Pulmonary arteries: Normal. No pulmonary emboli. Aorta: Unremarkable. No aortic aneurysm. No aortic dissection. Lungs: Unremarkable. No consolidation. No masses. Pleural spaces: Unremarkable. No pneumothorax. No pleural effusion. Heart: Unremarkable. No cardiomegaly. No pericardial effusion. Lymph nodes: Unremarkable. No enlarged lymph nodes. Bones/joints: Unremarkable. No acute fracture. Soft tissues: Unremarkable. IMPRESSION: Status post bilateral mastectomy with expected postsurgical change of the anterior thoracic wall with bilateral soft tissue drains. Dictated and Authenticated by: Sukhjinder Finley MD. Ordering:EDWARD Herbert MD
== END 2023-03-04 03:15 | disposition home or self-care (01) ==
PROVIDERS: Emergency Provider Student in an Organized Health Care Education/Training Program; PCP Internal Medicine
DX: R55 Syncope and collapse (principal); E86.0 Dehydration; R42 Dizziness and giddiness
CPT/HCPCS: 71275; 80053; 86850; 86900; 86901; 93005; 96360; 99285; 84443; 85025; 93010; 99284; J3490

== ENCOUNTER 2024-02-13 17:47 | Outpatient (REF) | payer MEDICAID, SELFPAY | END 2024-02-13 17:48 | disposition home or self-care (01) | LOC: LBN 17:47 | PROVIDERS: PCP Internal Medicine; Visit Provider Physician Assistant Medical | DX: J02.9 Acute pharyngitis, unspecified (principal) | CPT/HCPCS: 87070 ==

== ENCOUNTER 2025-07-15 15:47 | Outpatient (REF) | payer MEDICAID, SELFPAY ==
[2025-07-15 17:35] LABS: Glucose Negative (Negative)
[2025-07-15 17:43] LABS: WBC 0-2 HPF (0-5)
== END 2025-07-15 15:48 | disposition home or self-care (01) ==
LOC: LBN 15:47
PROVIDERS: PCP Nurse Practitioner Family; Visit Provider Family Medicine
DX: R31.0 Gross hematuria (principal); R30.0 Dysuria
CPT/HCPCS: 81003; 81015; 87086

== ENCOUNTER 2025-09-17 14:08 | Emergency (ER) | payer MEDICAID, SELFPAY ==
[2025-09-17 14:10] VITALS: BP 118/75; PULSE 109; RESP 18; TEMP 36.8; O2SAT 98
--- NOTE | 2025-09-17 14:15 | DI.CT_ITS ---
Exam(s) CT RENAL COLIC WO EXAM: CT RENAL COLIC WO CLINICAL HISTORY: lower back pain, hematuria. TECHNIQUE: Imaging Protocol: Axial computed tomography images with coronal and sagittal reformatted images were created and reviewed. COMPARISON: CT CT CHEST/ABD/PEL W from 08/10/[address] THORACIC LUMBAR SPINE REC from 08/10/[address] CHEST PE CTA from 03/04/2023 FINDINGS: ABDOMEN: Lung Bases: Normal where visualized. Liver: Normal density. No measurable mass. Gallbladder and biliary tract: No radiodense calculus or biliary ductal dilation. Pancreas: Normal density, no abnormal calcifications or inflammatory process. Spleen: There is again seen a tiny hypodensity in the posterior aspect of the spleen. This may represent a cyst or hemangioma. Kidneys: Normal size, contour and axis.No radiodense stones or obstructive uropathy. No masses seen. Adrenal glands: No mass is seen. Lymph nodes: Within normal limits. Abdominal Aorta: Abdominal portion non-dilated. PELVIS: Bladder:Urinary bladder is incompletely distended but grossly unremarkable. Bowel: No obstruction or bowel wall thickening. The appendix is not visualized. No evidence of a appendicitis. Peritoneal cavity: No ascites, collection or mesenteric inflammatory response. No free air. Reproductive organs: The patient is status post hysterectomy. Bones: Within normal limits. No large disc herniations are seen. No significant central spinal canal or neural foraminal stenosis is seen. Soft Tissues: There is a tiny fat containing umbilical hernia. IMPRESSION: 1. There is no acute abdominal or pelvic process. 2. No evidence of nephrolithiasis or hydronephrosis. RADIATION DOSE DELIVERED: 1,030.97mGy.cm Total DLP DATA REPOSITORY: All CT scans at this facility are submitted to the National Radiology Data Registry (NRDR) Dose Index Registry (DIR) with the [employer] (ACR). RADIATION OPTIMIZATION: All CT scans at this facility use at least one of these dose optimization techniques: automated exposure control; mA and/or kV adjustment per patient size (includes targeted exams where dose is matched to clinical indication); or iterative reconstruction.
[2025-09-17 14:19] VITALS: PULSE 92
[2025-09-17 14:20] VITALS: BP 118/75; PULSE 92; RESP 18; TEMP 36.8; O2SAT 98
--- NOTE | 2025-09-17 14:27 | W.ED.GENAD ---
Discharge Plan Disposition Patient Disposition: Home Condition: Stable Discharge Details Clinical Impression: Hematuria Primary Care Provider: Cassy Welch ED Provider: Sukhjinder Blanco Home Meds and New Rx's Prescriptions: Continued trazodone 50 mg tablet 50 mg PO DAILY norethindrone acetate 5 mg tablet 5 mg PO DAILY hydroxyzine HCl 25 mg tablet 25 mg PO QHS naltrexone 50 mg tablet 50 mg PO DAILY lisdexamfetamine [Vyvanse] 30 mg capsule 30 mg PO DAILY loratadine 10 mg tablet 10 mg PO DAILY budesonide-formoterol [Symbicort] 160-4.5 mcg/actuation HFA aerosol inhaler 1 inh inhalation ONCE ketoconazole 2 % cream 1 applic topical DAILY Qty: 120 6RF Rx Instructions: Apply to toenails once daily neomycin-polymyxin B-dexameth [Maxitrol] 3.5mg/mL-10,000 unit/mL-0.1 % drops,suspension See Rx Instructions .Route Q12H Qty: 5 0RF Rx Instructions: Apply to the toe every 12 hours; Apply to the TOE. Do NOT apply to eyes. Discard once the toe is healed. Discharge Instructions Additional Instructions: Your blood work did not show any concerning findings and your CAT scan also did not show any concerning findings at this time. You do have protein and blood in your urine. I would recommend following up with your primary care provider and discuss being referred to urology and nephrology. If you feel more ill or have new symptoms such as severe abdominal pain or high fevers return to the emergency department for reevaluation. Stand Alone Forms: Portal Information HPI General Mode of arrival: ambulatory. Date/Time Provider Initiated Documentation: 09/17/25 14:09. Limitations to Documentation: no limitations. Information obtained by: patient. History of Present Illness 35 year old F presents to the emergency department with the chief complaint of urinary frequency, urgency, hematuria , described as moderate, Patient started experiencing this month(s) (7) and it has been constant. No relieving factors improve symptom(s), No exacerbating factors reported . Patient notes no other symptoms.. Patient did receive the following treatments prior to arrival, none Related Data Home Medications Medication Instructions Recorded Confirmed budesonide-formoterol HFA 160 1 inh inhalation ONCE 08/31/24 09/21/24 mcg-4.5 mcg/actuation aerosol inhaler (Symbicort) hydroxyzine HCl 25 mg tablet 25 mg PO QHS 08/31/24 09/21/24 ketoconazole 2 % topical cream 1 applic topical DAILY #120 grams 08/31/24 09/21/24 lisdexamfetamine 30 mg capsule 30 mg PO DAILY 08/31/24 09/21/24 (Vyvanse) loratadine 10 mg tablet 10 mg PO DAILY 08/31/24 09/21/24 naltrexone 50 mg tablet 50 mg PO DAILY 08/31/24 09/21/24 norethindrone acetate 5 mg tablet 5 mg PO DAILY 08/31/24 09/21/24 trazodone 50 mg tablet 50 mg PO DAILY 08/31/24 09/21/24 [id number] 3.5 See Rx Instructions .Route Q12H #5 09/21/24 09/21/24 mg/mL-10,000 unit/mL-0.1% eye mL drops (Maxitrol) Previous Rx's Medication Instructions Recorded ketoconazole 2 % topical cream 1 applic topical DAILY #120 grams 08/31/24 [id number] 3.5 See Rx Instructions .Route Q12H #5 09/21/24 mg/mL-10,000 unit/mL-0.1% eye mL drops (Maxitrol) Allergies Allergy/AdvReac Type Severity Reaction Status Date / Time tramadol Allergy Severe Couldn't Verified 08/11/24 09:03 breathe adhesive Allergy Unknown Unknown Verified 08/11/24 09:03 bupropion HCl (From AdvReac Severe short Unverified 04/05/22 11:00 Wellbutrin) memory impairment. ethinyl estradiol (From AdvReac Severe nausea and Unverified 04/05/22 11:00 Ortho-Cyclen (21)) vomiting. norgestimate (From AdvReac Severe nausea and Unverified 04/05/22 11:00 Ortho-Cyclen (21)) vomiting. venlafaxine HCl (From AdvReac Severe decreased Unverified 04/05/22 11:00 Effexor) focus lactose AdvReac Intermediate intolerance Unverified 04/05/22 11:00 melatonin AdvReac Intermediate Agitation Unverified 04/05/22 11:00 General Stated Complaint: Urinary DESMOND: 4 Review of Systems All systems reviewed & are unremarkable except as noted in HPI and below Constitutional Constitutional: Denies chills, Denies fever(s) and Denies weakness Cardiovascular Cardiovascular: Denies chest pain and Denies dyspnea Respiratory Respiratory: Denies cough and Denies dyspnea Gastrointestinal Gastrointestinal: Denies abdominal pain, Denies nausea and Denies vomiting Genitourinary Genitourinary: Reports hematuria, Reports urinary urgency and Denies vaginal discharge Neurologic Neurologic: Denies weakness Exam Const General: no acute distress Orientation: alert [facility] Head: normal to inspection Ears: external ears normal General nose exam: external nose normal Mouth: moist mucous membranes Eyes General: appearance normal, both eyes and all related structures Neck Neck: normal visual inspection Resp Effort & Inspection: normal respiratory effort and able to speak in complete sentences Cardio Rate: regular rate GI Palpation: nontender Back/Spine/Pelvis Back: no CVA tenderness Skin General skin exam: no rashes or lesions noted Neuro General: patient alert and patient oriented x3 Extrem General: normal to inspection Psych Mental Status: mental status grossly normal Course Vital Signs Vital signs: Vital Signs Temperature 36.8 C 09/17/25 14:10 Pulse 109 H 09/17/25 14:10 Respiratory Rate 18 09/17/25 14:10 Blood Pressure 118/75 09/17/25 14:10 Pulse Oximetry 98 09/17/25 14:10 Temperature 36.8 C 09/17/25 14:20 Temperature Source Oral 09/17/25 14:20 Pulse 92 H 09/17/25 14:20 Respiratory Rate 18 09/17/25 14:20 Blood Pressure 118/75 09/17/25 14:20 Blood Pressure Position Sitting 09/17/25 14:20 Pulse Oximetry 98 09/17/25 14:20 Oxygen Delivery Method Room Air 09/17/25 14:20 Oxygen Flow Rate 0 09/17/25 14:20 Lab/Test Results Lab/Test Results: POC- Test(urine) Negative Medical Decision Making 35-year-old female comes in with urinary urgency and hematuria intermittently since February. She says she has been darker. [employer] today with [facility] who has not been able to find a cause and was referred to urology at [facility] but states that they could not see her until March so was told to come here. Patient denies any fevers or severe abdominal pain. She says she is current with acne. She is well-appearing speaking full sentences. He has no abdominal tenderness or CVA tenderness. Denies any vaginal bleeding or discharge and states she has had a hysterectomy. Given her complaints we will check a UA and CBC and CMP and also obtain a CT renal colic to evaluate for possible nephrolithiasis Blood work shows no concerning findings, with normal renal function. CT shows no significant findings, no evidence of kidney stones. Urine does have hematuria and proteinuria. Discussed results with her and offered to give her a urology and nephrology referral but she wants to do this with her PCP instead. She is stable for discharge and return precautions given. Differential Diagnosis Differential Diagnosis: Interstitial cystitis, UTI, kidney stone PFSH All Active Problems (Updated 09/17/25 @ 16:15 by Sukhjinder Blanco MD) Hematuria (Acute) Cellulitis (Acute) Pain in left foot (Acute) Nail dystrophy (Acute) Onychomycosis (Acute) Insomnia (Acute) ADHD (Acute) Ingrown toenail of both feet (Acute) Fall (Acute) Cervical pain (Acute) Abrasion (Acute) Medical History Suicidal thoughts Social History Smoking/Tobacco Use Status: Never Smoking risk assessment performed?: Yes Alcohol Intake: current Alcohol Intake frequency: holidays/special occasions only Alcohol type: hard liquor Drug use: Never Substance use type: does not use Do you feel safe at home: Yes Do you feel safe in your relationship?: Yes Additional Social history: Lives above parents in own apartment.
[2025-09-17 14:32] LABS: Glucose Negative (Negative)
[2025-09-17 14:39] LABS: WBC 0-2 HPF (0-5)
[2025-09-17 14:40] LABS: C & S Indicated? No
[2025-09-17 15:06] LABS: HCT 43.2 % (36.0-46.0); HGB 14.1 g/dL (11.2-15.7); MCH 30.3 pg (27.0-33.0); MCHC 32.6 % (32.0-36.0); MCV 93 fL (80-95); MPV 9.0 fL (8.0-11.0); Platelet Count 271 10^3/uL (130-400); RBC 4.66 10^6/uL (3.93-5.22); RDW 11.5 % (11.7-14.6); RDW-SD 38.9 fL; WBC 7.06 10^3/uL (4.4-10.8)
[2025-09-17 15:22] LABS: ALT 19 U/L (14-59); AST 13 U/L (15-37); Albumin 4.3 g/dL (3.4-5.0); Alkaline Phosphatase 88 U/L (46-116); Anion Gap 8.4 mmol/L (3-11); BUN 12 mg/dL (7-18); Bilirubin, Total 0.4 mg/dL (0.2-1.0); CO2 26.6 mmol/L (21.0-32.0); Calcium 9.0 mg/dL (8.5-10.1); Chloride 105 mmol/L (98-107); Glucose 88 mg/dL (74-106); Potassium 4.0 mmol/L (3.5-5.1); Sodium 140 mmol/L (136-145); Total Protein 7.9 g/dL (6.4-8.2)
== END 2025-09-17 16:33 | disposition home or self-care (01) ==
PROVIDERS: Emergency Provider Emergency Medicine; PCP Nurse Practitioner Family
DX: R31.9 Hematuria, unspecified (principal)
CPT/HCPCS: 99283; 99284; 81025; 80053; 85027; 74176; 81003; 81015